=== PATIENT | female | born 1940 | race Caucasian/White ===

== ENCOUNTER 2017-11-14 08:06 | Outpatient (CLI) | payer OTHER | END 2017-11-14 08:12 | disposition home or self-care (01) | LOC: RAD 08:06 | DX: R06.02 Shortness of breath (principal) ==

== ENCOUNTER 2018-06-24 08:07 | Outpatient (CLI) | payer OTHER | END 2018-06-24 08:23 | disposition home or self-care (01) | LOC: RAD 08:07 | DX: M25.551 Pain in right hip (principal); M25.552 Pain in left hip ==

== ENCOUNTER 2022-05-24 13:58 | Outpatient (CLI) | payer OTHER | END 2022-05-24 14:00 | disposition home or self-care (01) | LOC: NUCLEAR 13:58 | PROVIDERS: ATTEND Family Medicine | DX: M81.8 Other osteoporosis without current pathological fracture (principal) ==

== ENCOUNTER 2023-08-04 07:34 | Outpatient (CLI) | payer OTHER | END 2023-08-04 07:39 | disposition home or self-care (01) | LOC: SONOGRAMA 07:34 | PROVIDERS: ATTEND Family Medicine | DX: R31.21 Asymptomatic microscopic hematuria (principal) ==